=== PATIENT | male | born 1990 | race Caucasian/White ===

== ENCOUNTER 2016-06-30 21:24 | Emergency (ER) | payer BC ==
[~2016-06-30 21:24] MED LIST: ADVIL200 M3 PO; PERCOCET 5-3251 EACH PO
== END 2016-06-30 21:27 ==
LOC: EDMED 21:24
DX: R51 Headache (principal); F17.210 Nicotine dependence, cigarettes, uncomplicated
CPT/HCPCS: J1200; J1885; J2765; J7030